=== PATIENT | female | born 1935 | race African-American/Black ===

== ENCOUNTER → 2016-12-23 | Outpatient (CLI) | payer MEDICARE, OTHER | END | disposition home or self-care (01) | LOC: MAMMO 12:21 | PROVIDERS: ATTEND Internal Medicine | DX: Z12.31 Encounter for screening mammogram for malignant neoplasm of breast (principal) | CPT/HCPCS: G0202 ==

== ENCOUNTER 2021-11-16 19:57 | Emergency (ER) | payer MEDICARE, OTHER ==
[~2021-11-16] VITALS: Ht 165.1 cm; Wt 73.0 kg
[~2021-11-16 19:57] MED LIST: ATOR10TA69 MT; ESCI5SOL2 PO; MEMA10TA55 MT; METH2.5T MT; OXYB5TAB17 MT; VIT1TABL86 PO
[2021-11-16 22:52] LABS: BASOPHILS % 0.6 % (0.0-2.0); EOSINOPHILS % 0.7 % (0.0-5.0); HEMATOCRIT. 40.3 % (36.0-48.0); HEMOGLOBIN. 13.2 g/dL (12.0-16.0); LYMPHOCYTES % 14.2 % (20.0-50.0); MEAN CORPUSCULAR HEMOGLOBIN 28.8 pg (28.0-32.0); MEAN CORPUSCULAR VOLUME 87.7 fL (81.0-99.0); MEAN PLATELET VOLUME 8.3 fl (7.4-10.4); MONOCYTES % 10.2 % (2.0-8.0); NEUTROPHILS % 74.3 % (40.0-76.0); PLATELET 323 x1000/uL (130-400); RED CELL DISTRIBUTION WIDTH 16.1 % (11.6-14.6)
[2021-11-16 22:55] LABS: CHLORIDE 102 mEq/L (98-107)
[2021-11-16] MEDS ORDERED: ACETAMINOPHEN 325MG TABLET PO NR (23:00)
[2021-11-16 23:03] LABS: ETHANOL BLOOD < 10 mg/dL
[2021-11-17] MEDS ORDERED: ACET-2708 MT (01:34)
[2021-11-17 02:01] LABS: CLARITY URINE CLOUDY (CLEAR); COLOR URINE DARK YELLOW (YELLOW); KETONES URINE TRACE (NEGATIVE); LEUKOCYTE ESTERASE URINE 2+ (NEGATIVE); NITRITE URINE NEGATIVE (NEGATIVE); OCCULT BLOOD URINE 1+ (NEGATIVE); PROTEIN URINE TRACE (NEGATIVE); SPECIFIC GRAVITY URINE 1.028 (1.005-1.030); UROBILINOGEN URINE 0.2 E.U./dL (0.2-1.0)
[2021-11-17 02:20] LABS: *AMPHETAMINES SCREEN URINE NEGATIVE (NEGATIVE); *BARBITURATES SCREEN URINE NEGATIVE (NEGATIVE); *BENZODIAZEPINES SCREEN URINE NEGATIVE (NEGATIVE); *COCAINE SCREEN URINE NEGATIVE (NEGATIVE); CANNABINOID URINE SCREEN NEGATIVE (NEGATIVE); METHADONE URINE SCREEN NEGATIVE (NEGATIVE); OPIATES URINE SCREEN NEGATIVE (NEGATIVE); PHENCYCLIDINE URINE SCREEN NEGATIVE (NEGATIVE)
[2021-11-17 15:20] VITALS: BP 141/68
== END 2021-11-17 15:58 | disposition home or self-care (01) ==
LOC: ER 19:57
DX: R10.30 Lower abdominal pain, unspecified (principal); I10 Essential (primary) hypertension; F03.90 Unspecified dementia, unspecified severity, without behavioral disturbance, psychotic disturbance, mood disturbance, and anxiety
CPT/HCPCS: 36415; 71045; 74176; 80053; 80305; 80320; 81003; 83605; 85025; 99285; G0480

== ENCOUNTER 2022-02-02 14:49 | Inpatient (IN) | payer MEDICARE, OTHER ==
[~2022-02-02] VITALS: Ht 165.1 cm; Wt 62.1 kg
[~2022-02-02 14:49] MED LIST changes: +ACET-2708 MT
[2022-02-02] MEDS ORDERED: GENTAMICIN SULFATE 80 MG in SODIUM CHLORIDE 0.9% 100 ML IV SCH (15:30)
[2022-02-02] MEDS ORDERED: ONDANSETRON HCL 4MG/2ML INJ IV ONE (15:30)
[2022-02-02] MEDS ORDERED: SODIUM CHLORIDE 0.9% 1000ML BAG (SEPSIS BOLUS) IV ONE (15:30)
[2022-02-02 16:03] LABS: BASOPHILS % 0.5 % (0.0-2.0); EOSINOPHILS % 1.3 % (0.0-5.0); HEMATOCRIT. 40.4 % (36.0-48.0); HEMOGLOBIN. 12.8 g/dL (12.0-16.0); LYMPHOCYTES % 11.8 % (20.0-50.0); MEAN CORPUSCULAR HEMOGLOBIN 28.2 pg (28.0-32.0); MEAN CORPUSCULAR VOLUME 89.2 fL (81.0-99.0); MEAN PLATELET VOLUME 9.2 fl (7.4-10.4); MONOCYTES % 2.6 % (2.0-8.0); NEUTROPHILS % 83.8 % (40.0-76.0); PLATELET 340 x1000/uL (130-400); RED BLOOD CELL COUNT 4.52 mill/uL (4.2-5.4); RED CELL DISTRIBUTION WIDTH 16.9 % (11.6-14.6)
[2022-02-02] MEDS: GENTAMICIN 80MG PREMIX 100 ML IV SCH (16:25)
[2022-02-02 16:26] LABS: CHLORIDE 104 mEq/L (98-107)
[2022-02-02] MEDS ORDERED: MORPHINE SULFATE 2 MG/ML CPJ (NOT FOR IM USE) IV ONE (17:00)
[2022-02-02] MEDS ORDERED: VANCOMYCIN 1G PREMIX 200 ML IV SCH (17:30)
[2022-02-02 23:41] LABS: CLARITY URINE CLOUDY (CLEAR); COLOR URINE YELLOW (YELLOW); KETONES URINE TRACE (NEGATIVE); LEUKOCYTE ESTERASE URINE TRACE (NEGATIVE); NITRITE URINE NEGATIVE (NEGATIVE); OCCULT BLOOD URINE 1+ (NEGATIVE); PROTEIN URINE TRACE (NEGATIVE); SPECIFIC GRAVITY URINE 1.013 (1.005-1.030)
[2022-02-03] MEDS ORDERED: DIPHENHYDRAMINE 50MG/ML VIAL IV ONE (00:45)
[2022-02-03] MEDS ORDERED: OLANZAPINE 10 MG/VIAL IM ONE (00:45)
[2022-02-03] MEDS ORDERED: DIPHENHYDRAMINE 50MG/ML VIAL IV NR (01:00)
[2022-02-03] MEDS ORDERED: OLANZAPINE 10 MG/VIAL IM NR (01:00)
[2022-02-03] MEDS: GENTAMICIN 80MG PREMIX 100 ML IV SCH (05:51)
[2022-02-03 10:13] VITALS: BP 168/68
[2022-02-03] MEDS ORDERED: ONDANSETRON HCL 4MG/2ML INJ IV PRN (10:45)
[2022-02-03] MEDS ORDERED: DEXTROSE 50% WATER 50ML SYRINGE IV PRN (11:00)
[2022-02-03] MEDS: PANTOPRAZOLE SODIUM 40 MG/VIAL IV SCH (11:18)
[2022-02-03] MEDS: SODIUM CHLORIDE 0.9% 1,000 ML IV SCH (11:18)
[2022-02-03 12:00] VITALS: BP 144/75
[2022-02-03] MEDS ORDERED: VANCOMYCIN 750MG PREMIX 150 ML IV SCH (13:00)
[2022-02-03] MEDS: BLOOD SUGAR DIAGNOSTIC STRIP TEST SCH ×3 (13:05→21:00)
[2022-02-03] MEDS: INSULIN LISPRO 100 UNITS/ML SUBCUT SCH ×3 (13:06→21:00)
[2022-02-03] MEDS ORDERED: MOM MT (14:29)
[2022-02-03] MEDS ORDERED: QUET25TA PO (14:29)
[2022-02-03] MEDS ORDERED: CLONIDINE 0.1MG TABLET PO PRN (15:30)
[2022-02-03 16:00] VITALS: BP 128/54
[2022-02-03 18:02] LABS: BASOPHILS % 0.6 % (0.0-2.0); EOSINOPHILS % 4.9 % (0.0-5.0); HEMATOCRIT. 37.5 % (36.0-48.0); HEMOGLOBIN. 11.9 g/dL (12.0-16.0); LYMPHOCYTES % 15.4 % (20.0-50.0); MEAN CORPUSCULAR HEMOGLOBIN 28.9 pg (28.0-32.0); MEAN CORPUSCULAR VOLUME 90.8 fL (81.0-99.0); MEAN PLATELET VOLUME 8.9 fl (7.4-10.4); MONOCYTES % 8.7 % (2.0-8.0); NEUTROPHILS % 70.4 % (40.0-76.0); PLATELET 270 x1000/uL (130-400); RED BLOOD CELL COUNT 4.13 mill/uL (4.2-5.4); RED CELL DISTRIBUTION WIDTH 17.2 % (11.6-14.6)
[2022-02-03 18:48] LABS: CHLORIDE 114 mEq/L (98-107)
[2022-02-03 19:03] LABS: HDL CHOLESTEROL 41 mg/dL (40-59); LDL CHOLESTEROL 88 mg/dL (5-100)
[2022-02-03 20:00] VITALS: BP 133/63
[2022-02-03] MEDS: AZTREONAM 2 GM in DEXT 5% WATER 100 ML IV SCH (20:05)
[2022-02-04] VITALS: BP 146/64
[2022-02-04 04:00] VITALS: BP 157/71
[2022-02-04] MEDS: INSULIN LISPRO 100 UNITS/ML SUBCUT SCH ×4 (06:45→20:28)
[2022-02-04 07:31] LABS: CHLORIDE 113 mEq/L (98-107)
[2022-02-04] MEDS: BLOOD SUGAR DIAGNOSTIC STRIP TEST SCH ×4 (07:40→20:28)
[2022-02-04 08:00] VITALS: BP 146/88
[2022-02-04] MEDS: SODIUM CHLORIDE 0.9% 1,000 ML IV SCH ×2 (08:30→13:25)
[2022-02-04] MEDS: AZTREONAM 2 GM in DEXT 5% WATER 100 ML IV SCH ×2 (08:48→20:41)
[2022-02-04] MEDS: PANTOPRAZOLE SODIUM 40 MG/VIAL IV SCH (08:49)
[2022-02-04] MEDS: QUETIAPINE FUMARATE 25MG TABLET PO SCH ×2 (08:49→17:00)
[2022-02-04] MEDS: ATORVASTATIN CALCIUM 10MG TABLET PO SCH (08:49)
[2022-02-04 12:00] VITALS: BP 120/57
[2022-02-04 16:00] VITALS: BP 127/66
[2022-02-04 20:00] VITALS: BP 142/61
[2022-02-05] VITALS: BP 146/73
[2022-02-05] MEDS: SODIUM CHLORIDE 0.9% 1,000 ML IV SCH (02:58)
[2022-02-05 04:00] VITALS: BP 162/76
[2022-02-05] MEDS: BLOOD SUGAR DIAGNOSTIC STRIP TEST SCH ×3 (06:50→21:33)
[2022-02-05 08:00] VITALS: BP 128/61
[2022-02-05] MEDS: INSULIN LISPRO 100 UNITS/ML SUBCUT SCH ×3 (08:10→21:40)
[2022-02-05] MEDS: ATORVASTATIN CALCIUM 10MG TABLET PO SCH (09:22)
[2022-02-05] MEDS: AZTREONAM 2 GM in DEXT 5% WATER 100 ML IV SCH ×2 (09:22→21:33)
[2022-02-05] MEDS: QUETIAPINE FUMARATE 25MG TABLET PO SCH ×2 (09:22→17:25)
[2022-02-05] MEDS: FAMOTIDINE 20MG/2ML VIAL IV SCH (09:23)
[2022-02-05 12:00] VITALS: BP 124/60
[2022-02-05 16:00] VITALS: BP 129/84
[2022-02-05 20:00] VITALS: BP 117/58
[2022-02-06 00:45] VITALS: BP 129/63
[2022-02-06 04:00] VITALS: BP 146/69
[2022-02-06] MEDS: SODIUM CHLORIDE 0.9% 1,000 ML IV SCH (05:41)
[2022-02-06] MEDS: BLOOD SUGAR DIAGNOSTIC STRIP TEST SCH ×2 (06:46→12:40)
[2022-02-06] MEDS: INSULIN LISPRO 100 UNITS/ML SUBCUT SCH ×2 (08:10→13:10)
[2022-02-06] MEDS: AZTREONAM 2 GM in DEXT 5% WATER 100 ML IV SCH (08:51)
[2022-02-06] MEDS: ATORVASTATIN CALCIUM 10MG TABLET PO SCH (08:51)
[2022-02-06] MEDS: QUETIAPINE FUMARATE 25MG TABLET PO SCH (08:51)
[2022-02-06] MEDS: FAMOTIDINE 20MG/2ML VIAL IV SCH (08:51)
[2022-02-06 12:00] VITALS: BP 136/60
[2022-02-06 16:00] VITALS: BP 122/47
[2022-02-06 16:28] VITALS: BP 136/60
== END 2022-02-06 17:00 | DRG 871 ==
LOC: ER 14:59 → 7WST 19:23
PROVIDERS: ADMIT Internal Medicine; ATTEND Internal Medicine
DX: A41.9 Sepsis, unspecified organism (principal); J96.01 Acute respiratory failure with hypoxia; R65.21 Severe sepsis with septic shock; N39.0 Urinary tract infection, site not specified; N17.9 Acute kidney failure, unspecified; E87.20 Acidosis, unspecified; R64 Cachexia; E44.1 Mild protein-calorie malnutrition; F03.94 Unspecified dementia, unspecified severity, with anxiety; Z20.822 Contact with and (suspected) exposure to COVID-19; G89.29 Other chronic pain; I11.9 Hypertensive heart disease without heart failure; E78.00 Pure hypercholesterolemia, unspecified; M19.90 Unspecified osteoarthritis, unspecified site; E78.5 Hyperlipidemia, unspecified; F41.9 Anxiety disorder, unspecified; Z88.0 Allergy status to penicillin; Z88.2 Allergy status to sulfonamides; Z88.8 Allergy status to other drugs, medicaments and biological substances; Z79.899 Other long term (current) drug therapy; Z68.22 Body mass index [BMI] 22.0-22.9, adult; Z83.3 Family history of diabetes mellitus; E11.65 Type 2 diabetes mellitus with hyperglycemia
CPT/HCPCS: 36415; 71045; 80048; 80053; 80061; 81003; 82962; 83036; 83605; 83735; 83880; 84145; 84443; 84484; 85025; 85379; 87426; 93005; 93306; 99291; A6261; C9113; C9803; J1200; J1580; J1815; J2270; J2405; J3370; J3490; J7030; J7050; J7060